=== PATIENT | male | born 1980 | race Caucasian/White ===

== ENCOUNTER 2025-04-03 00:34 | Emergency (ER) | payer OTHER, SELFPAY ==
--- NOTE | ~2025-04-03 | CT_ITS ---
CLINICAL HISTORY: LEFT FLANK PAIN CT abdomen and pelvis without contrast Comparison: None provided Findings: No consolidation of the imaged lung bases. Multiple right-sided nephrolithiasis measure up to 4 mm. Multiple left-sided nephrolithiasis measure up to 3 mm. No hydronephrosis of either kidney. Fluid and stranding this is nonspecific by upper abdomen and likely reflects pancreatitis. Mild volume loss of the pancreas also noted. The adrenal glands are normal. No lobe formed pseudocyst or walled-off area of necrosis by noncontrast CT. Multiple mesenteric and retroperitoneal lymph nodes are nonspecific and may be reactive. Mild splenomegaly. Gallbladder contracted. Liver is unremarkable for noncontrast imaging with motion artifacts. No small bowel obstruction. Severe stool burden is present, including the cecum. The appendix is not definitively seen and likely surgically absent. The prostate gland measures 4 cm transverse. Mild wall thickening of the urinary bladder is nonspecific. Vascular calcifications noted, including phleboliths in the pelvis. Degenerative changes include the hips, SI joints, and spine. Facet arthropathy is multifocal and greater than expected for age. Degenerative disc changes noted including vacuum disc phenomenon with mild retrolisthesis at L3-L4. IMPRESSION: 1. Mild fluid in the upper abdomen is nonspecific and concerning for pancreatitis. 2. Multiple nonobstructing bilateral nephrolithiasis measuring up to 4 mm. No hydronephrosis. 3. Severe stool burden. No small bowel obstruction. This document has been electronically signed by: Stuart Gongora MD on 04/03/2025 02:42:01
[2025-04-03 00:45] VITALS: BP 116/70; BP 124/82; PULSE 83; PULSE 91; RESP 15; TEMP 36.7; O2SAT 96; O2SAT 97; BMI 36.9
--- NOTE | 2025-04-03 01:03 | ED_ITS ---
HPI - Male Genitourinary General Chief complaint: Urogenital-Male Stated complaint: ABDOMINAL PAIN /KIDNEY STONES ? Time Seen by Provider: 04/03/25 00:50 Source: patient Limitations: no limitations History of Present Illness ED Provider: Ary Nails PA-C HPI Narrative: 44-year-old male with a history of major depressive disorder, polysubstance abuse, seizure disorder, TBI, kidney stones, coming from [facility] with left flank pain times 3 days. Pain over mid to lower left flank with radiation to the back at times. Pain described as sharp, the pain fluctuates in intensity. Associated discolored urine, dysuria and increased urinary frequency. Associated nausea at times. Denies known fever. Related Data Allergies Allergy/AdvReac Type Severity Reaction Status Date / Time aripiprazole (From Abilify) Allergy Seizure Verified 04/03/25 00:47 divalproex sodium (From Allergy Muscle Verified 04/03/25 00:47 Depakote) cramps Review of Systems 2 Review of Systems: Yes all other systems are reviewed and are negative Constitutional: Constitutional: Denies fatigue and Denies fever(s) Cardiovascular: Cardiovascular: Denies chest pain and Denies dyspnea Respiratory: Respiratory: Denies dyspnea Gastrointestinal: Gastrointestinal: Reports abdominal pain, Reports nausea and Denies vomiting Genitourinary: Genitourinary: Reports hematuria, Reports dysuria and Reports flank pain Musculoskeletal: Musculoskeletal: Reports back pain Endocrine: Endocrine: Denies fatigue [facility] Past Medical History Attestation statement: The following information was validated with the patient. Social History Social History Advance Directives: No Advance Directives Information Provided: Yes Physical Exam 2 Vital Signs: Vital Signs: Last Vital Signs Temp 98.0 F 04/03/25 00:45 Pulse 83 04/03/25 00:45 Resp 18 04/03/25 01:18 BP 116/70 04/03/25 00:45 Pulse Ox 96 04/03/25 00:45 O2 Del Method Room Air 04/03/25 00:45 BMI result Body Mass Index 36.9 Const: Other: Alert well-appearing Orientation/consciousness: patient oriented x3 Resp: Effort & Inspection: normal respiratory effort Cardio: Other: Normal peripheral perfusion : General: Yes no CVA tenderness Back/Spine/Pelvis: Back: no CVA tenderness Skin: Other: Warm dry no rash Neuro: General: patient oriented x3, gait normal, no focal motor deficits and CN's II-XI intact bilaterally Psych: Other: Cooperative Medications Administered Discontinued Medications Generic Name Dose Route Start Last Admin Trade Name Jovanna PRN Reason Stop Dose Admin Sodium Chloride 1,000 mls @ 999 mls/hr 04/03/25 01:15 04/03/25 03:20 Ns IV 04/03/25 02:15 Infused .Q1H1M ALANNAH Infusion Ketorolac Tromethamine 15 mg 04/03/25 01:02 04/03/25 01:19 Ketorolac Tromethamine 15 Mg/Ml Vial IVPUSH 04/03/25 01:03 15 mg ONCE ONE Administration Morphine Sulfate 4 mg 04/03/25 01:02 04/03/25 01:18 Morphine Sulfate 4 Mg/Ml Cartridge IVPUSH 04/03/25 01:03 4 mg ONCE ONE Administration Protocol Ondansetron HCl 4 mg 04/03/25 01:02 04/03/25 01:19 Ondansetron Hcl 4 Mg/2 Ml Vial IVPUSH 04/03/25 01:03 4 mg ONCE ONE Administration Tamsulosin HCl 0.4 mg 04/03/25 01:02 04/03/25 01:18 Tamsulosin Hcl 0.4 Mg Capsule PO 04/03/25 01:03 0.4 mg ONCE ONE Administration Medical Decision Making Medical Decision Making MDM Narrative: 44-year-old male with a history of major depressive disorder, polysubstance abuse, seizure disorder, TBI, kidney stones, coming from [facility] with left flank pain times 3 days. Pain over mid to lower left flank with radiation to the back at times. Pain described as sharp, the pain fluctuates in intensity. Associated discolored urine, dysuria and increased urinary frequency. Associated nausea at times. Denies known fever. Problem: Psychiatric illness, kidney stones History: Per patient I have considered the following differential diagnoses: Pyelonephritis, renal colic, diverticulitis, UTI Plan: Patient has a history of kidney stones, his symptoms and distribution of pain are consistent with a renal colic. In addition to screening labs adding on a UA, we will obtain a CT scan. Giving morphine Toradol Zofran and Flomax with fluid. Thought about diverticulitis given left-sided symptoms, however no focal pain within the left lower quadrant, no diarrhea. I have independently reviewed the following tests: Labs: Pancytopenic, no electrolyte abnormality, LFTs minimally elevated at 78 AST, 67 ALT, alk phos 219, lipase 21, urine not infected, passing small amount of hematuria, he could have passed a small stone, given he has stones that are nonobstructing at this time. CT abdomen and pelvis:IMPRESSION: 1. Mild fluid in the upper abdomen is nonspecific and concerning for pancreatitis. 2. Multiple nonobstructing bilateral nephrolithiasis measuring up to 4 mm. No hydronephrosis. 3. Severe stool burden. No small bowel obstruction. Clinically, the patient does not have pancreatitis, he is sitting up eating and drinking, he has had at least 2 sandwiches, crackers, pudding several drinks, he is not nauseous, and he does not have focal left upper abdominal pain. This is clearly an over-read on the CT scan Differential Diagnosis Differential Diagnoses: The differential diagnosis associated with the presentation includes See medical decision-making Admission/Observation Consideration of admission/observation: Escalation of care including admission/observation considered Not applicable Lab Data MDM Lab Attestation statement: I reviewed the patient's lab results. 04/03/25 01:10 04/03/25 01:10 Labs: Lab Results 04/03/25 04/03/25 Range/Units 01:10 03:18 WBC 3.8 L (4.8-10.8) X10*3/uL RBC 3.90 L (4.60-5.80) X10*6/uL Hgb 11.2 L (14.0-18.0) g/dl Hct 33.5 L (42.0-52.0) % MCV 85.9 (80.0-98.0) fL MCH 28.7 (27.0-33.0) pg MCHC 33.4 (31.0-36.0) g/dl RDW 16.0 (11.0-16.0) % Plt Count 76 L (160-400) X10*3/uL MPV 12.3 (9.4-12.4) fL Immature Gran % (Auto) 0.0 (0.0-0.4) % Neut % (Auto) 35.4 L (45-73) % Lymph % (Auto) 50.9 H (20-40) % [place] % (Auto) 9.0 (2-11) % Eos % (Auto) 4.2 H (0-4) % Baso % (Auto) 0.5 (0-2) % Lymph # (Auto) 1.9 (1.2-4.9) X10*3/uL [place] # (Auto) 0.3 (0.1-1.2) X10*3/uL Eos # (Auto) 0.2 (0.0-0.4) X10*3/uL Baso # (Auto) 0.0 (0.0-0.2) X10*3/uL Abs Immat Gran (auto) 0.00 (0.00-0.03) X10*3/uL Absolute Neuts (auto) 1.3 L (2.0-8.3) x10*3/uL Absolute Nucleated RBC 0.000 (0.0-0.012) X10*3/uL Nucleated RBC % (auto) 0.0 (0.0-0.2) /100WBC Sodium 141 (135-145) mmol/L Potassium 4.4 (3.3-5.1) mmol/L Chloride 107 (96-108) mmol/L Carbon Dioxide 28 (22-29) mmol/L Anion Gap 10 L (12-20) BUN 14 (9-16) mg/dL Creatinine 0.74 (0.5-1.4) mg/dL Estim Creat Clear Calc 166.1 Estimated GFR > 60 Random Glucose 252 H (60-115) mg/dL Calcium 8.8 (8.4-10.2) mg/dL Magnesium 1.7 (1.6-2.6) mg/dL Total Bilirubin 0.4 (0.0-1.0) mg/dL AST 78 H (5-37) U/L ALT 67 H (0-40) U/L Alkaline Phosphatase 219 H (39-117) U/L Total Protein 6.5 (6.5-8.0) g/dL Albumin 3.5 (3.5-5.0) g/dL Lipase 21 (8-78) U/L Urine Color Dark Yellow Urine Appearance Clear Urine pH 6.5 (5.0-9.0) Ur Specific [place] >= 1.030 H (1.005-1.025) Urine Protein Trace (Neg-Trace) mg/dL Urine Glucose (UA) 100 H (Negative) mg/dL Urine Ketones Trace (Negative) mg/dL Urine Blood Trace H (Negative) Urine Nitrite Negative (Negative) Ur Leukocyte Esterase Negative (Negative) Urine RBC 11-20 H (0-2) /HPF Urine WBC 0-5 (0-5) /HPF Ur Squamous Epith Cells 0-2 (0-2) /HPF Urine Bacteria None Seen (None Seen) Hyaline Casts 0-2 (0-2) /LPF Radiology Impression Discussion of test interpretation with radiology: I have reviewed the radiologist's reading. Discharge Plan Discharge Clinical Impression: Abdominal pain, Hematuria Patient Disposition: Home, Self-Care Instructions: Abdominal Pain (ED), Hematuria (ED) Additional Instructions: The CT scan revealed that you have multiple stones in both kidneys, however there is nothing passing at this time. You likely passed a stone earlier today, you do have blood in your urine. The remainder of your labs were at your baseline. You need to follow up with the urologist, I am providing you with a contact, you can call to make an appointment. Referrals: Malathi Guerrero MD [Physician, Urology] Referral Note: Kidney stones Print Language: Malawian
[2025-04-03 01:15] LABS: MANUAL DIFF FLAG NO
[2025-04-03 01:18] VITALS: RESP 18
[2025-04-03 01:25] LABS: Hematocrit 33.5 % (42.0-52.0); Hemoglobin 11.2 g/dl (14.0-18.0); Imm Gran Abs Auto 0.00 X10*3/uL (0.00-0.03); Imm Gran Pct Auto 0.0 % (0.0-0.4); Lymphocytes Absolute Auto 1.9 X10*3/uL (1.2-4.9); Mean Corpuscular HGB Conc 33.4 g/dl (31.0-36.0); Mean Corpuscular Hemoglobin 28.7 pg (27.0-33.0); Mean Corpuscular Volume 85.9 fL (80.0-98.0); NRBC Abs Auto 0.000 X10*3/uL (0.0-0.012); NRBC Pct Auto 0.0 /100WBC (0.0-0.2); Platelet Count 76 X10*3/uL (160-400); Red Blood Count 3.90 X10*6/uL (4.60-5.80); White Blood Count 3.8 X10*3/uL (4.8-10.8)
[2025-04-03 01:38] LABS: Alanine Aminotransferase 67 U/L (0-40); Albumin Level 3.5 g/dL (3.5-5.0); Alkaline Phosphatase 219 U/L (39-117); Anion Gap 10 (12-20); Aspartate Amino Transferase 78 U/L (5-37); Blood Urea Nitrogen 14 mg/dL (9-16); Calcium 8.8 mg/dL (8.4-10.2); Carbon Dioxide 28 mmol/L (22-29); Chloride 107 mmol/L (96-108); Creatinine Clr Calc Pharmacy 166.1; Estimated Glomerular Filt Rate > 60; Magnesium 1.7 mg/dL (1.6-2.6); Potassium 4.4 mmol/L (3.3-5.1); Sodium 141 mmol/L (135-145); Total Protein 6.5 g/dL (6.5-8.0)
--- NOTE | 2025-04-03 01:40 | PC.NURSE ---
pt biba from [facility], a&ox4, respirations even and unlabored. pt reports onset of RLQ pain radiating into r flank. pt reports increased burning and pain with urination. pt reports hx of kidney stones. elysia castillo at bedside. 20g placed in left ac. pt in hospital attire, and sitter at bedside. pt medicated per aug.
--- OUTSIDE RECORDS SUMMARY | 2025-04-03 02:33 | XMS_ITS | Clinical Summary ---
Author Organization [facility] Address [address] [place] [address] Care Team Providers Care Sales Analyst Name Role Phone No, Pcp MD Primary Care Provider Unavailabl e Allergies Active Allergy Reactions Criticality Noted Date Comments Divalproex GI Intolerance 02/08/2025 Divalproex Sodium Other (See Comments) 05/05/20 Haloperidol Other (See Comments) 05/05/2024 Medications cloNIDine HCL (CATAPRES) 0.2 MG tablet Take 1 (one) tablet (0.2 mg total) by mouth once daily. 5 Active baclofen (LIORESAL) 10 MG tablet Take 1 (one) tablet (10 mg total) by mouth 4 (four) times a day. Active buprenorphine-n aloxone (SUBOXONE) 8-[address] 1 (one) tablet (8 mg total) under the tongue 2 (two) times a day. Active buPROPion (WELLBUTRIN XL) 150 MG 24 hr XL tablet Take 1 (one) tablet (150 mg total) by mouth once daily. 4 Active busPIRone (BUSPAR) 30 MG tablet Take 1 (one) tablet (30 mg total) by mouth 2 (two) times a day. 4 Active FLUoxetine (PROZAC) 20 MG capsule Take 2 (two) capsules (40 mg total) by mouth once daily. 5 Active ADVAIR DISKUS 100-50 mcg/dose inhaler Inhale 1 (one) puff by mouth 2 (two) times a day. 5 Active hydrOXYzine HCL (ATARAX) 25 MG tablet 1 (one) tablet (25 mg total) 4 (four) times a day. 5 Active lurasidone (LATUDA) 40 mg tablet Take 1 (one) tablet (40 mg total) by mouth daily with dinner. 4 Active mirtazapine (REMERON) 15 MG tablet Take 1 (one) tablet (15 mg total) by mouth nightly. 5 Active blood-glucose meter Kit by Other route. 5 Active insulin lispro (ADMELOG, HUMALOG) 100 unit/mL injection solution Active LORazepam (ATIVAN) 1 MG tablet TAKE 1 TAB ONCE A DAY FOR BENZO/ETOH W/DRAWAL 5 Active prazosin (MINIPRESS) 2 MG capsule take 1 capsule by mouth every day at night Active tamsulosin (FLOMAX) 0.4 mg capsule Active SUBOXONE 4-1 mg sublingual film PLEASE SEE ATTACHED FOR DETAILED DIRECTIONS 5 Active gabapentin (NEURONTIN) 800 MG tablet Take 1 (one) tablet (800 mg total) by mouth 3 (three) times a day. Active QUEtiapine (SEROQUEL XR) 300 MG 24 hr tablet TAKE 1 TABLET BY MOUTH EVERY DAY AT BEDTIME FOR MOOD 5 Active hydrOXYzine (ATARAX) 50 MG tablet TAKE 1 TAB TWICE A DAY NEEDED FOR ANXIETY Active omeprazole (PRILOSEC) 20 MG delayed release capsule Take by mouth. 5 Active Encounters Date Type Department Care Team Description 03/26/2025 6:34 PM EDT - 03/27/2025 10:37 PM EDT Emergency [facility] Emergency Medicine [address] [place] [phone] Yair Terry DO Kim, Samuel, MD Brown, William, MD Ramler, Allison, MD Altered mental status, unspecified altered mental status type (Primary Dx); Benzodiazepine overdose of undetermined intent, initial encounter Discharge Disposition: [facility] 02/08/2025 6:22 PM EDT - 02/10/2025 10:20 AM EDT Emergency [facility] Emergency Medicine [address] [place] [phone] Ej Hopkins MD Agitation (Primary Dx) Discharge Disposition: [facility] from Last 3 Months Social History Tobacco Use Types Packs/Day Years Used Date Smoking Tobacco: Never Assessed Humiliation, Afraid, Rape, a nd Kick questionnaire Answer Date Recorded Within the last year, have y ou been afraid of your partner or ex-partner? Patient unable to answer 03/26/2025 Emotionally Abused Not on file 03/26/2025 Physically Abused Not on file 03/26/2025 Sexually Abused Not on file 03/26/2025 Sex and Gender Information Value Date Recorded Sex Assigned at Not on file Legal Sex Male 6:02 PM EDT Gender Identity Not on file Sexual Orientation Not on file Last Filed Vital Signs Vital Sign Reading Time Taken Comments Blood Pressure 133/88 03/27/2025 10:24 PM EDT Pulse 84 03/27/2025 10:24 PM EDT Temperature 36.7 C (98 F) 03/27/2025 10:24 PM EDT Respiratory Rate 20 03/27/2025 10:24 PM EDT Oxygen Saturation 100% 03/27/2025 10:24 PM EDT Inhaled Oxygen Concentration - - Weight 113.4 kg (250 lb) 01/22/2025 4:05 PM EDT Height 177.8 cm (5' 10 ) 02/08/2025 2:35 PM EDT Body Mass Index 33.91 01/22/2025 4:05 PM EDT Plan of Treatment Health Maintenance Due Date Last Done Comments HEPATITIS C SCREENING 1996 PNEUMOCOCCAL VACCINE (1 of 2 - PCV) 1998 DTAP/TDAP/TD VACCINES (1 - Tdap) 2008 COLONOSCOPY (CRC) 2024 COLORECTAL CANCER SCREENING (CRC) 2024 CT COLONOGRAPHY (CRC) 2024 FIT-DNA (CRC) 2024 FIT/iFOBT (CRC) 2024 SIGMOIDOSCOPY (CRC) 2024 INFLUENZA VACCINE (#1) 2025 COVID-19 IMMUNIZATION (1 - 2 024-25 season) 2025 ZOSTER VACCINE (1 of 2) 2029 RSV IMMUNIZATION (1 - 1-dose 75+ series) 2054 IPV VACCINES Aged Out No longer eligi ble based on patient's age to complete this topic MENINGOCOCCAL B VACCINE Aged Out No l onger eligible based on patient's age to complete this topic Procedures Procedure Name Priority Date/Time Associated Diagnosis Comments MANUAL DIFFERENTIAL Routine 03/26/2025 7 :25 PM EDT BASIC METABOLIC PANEL STAT 03/26/2025 7:25 PM EDT HC AUTO CBC NO DIFF STAT 03/26/2025 7 :25 PM EDT ETHANOL LEVEL STAT 03/26/2025 7:25 PM EDT +GLUMETER Routine 03/26/2025 6:59 PM EDT URINALYSIS WITH REFLEX TO CULTURE Routine 02/10/2025 7:08 AM EDT CONVERSION BUPRENORPHINE SUBOXONE SCREEN Routine 02/10/2025 7:08 AM EDT URINE DRUG SCREEN STAT 02/10/2025 7:0 8 AM EDT X-RAY CHEST PA AND LATERAL STAT 02/08/2025 6:41 PM EDT TROPONIN T HIGH SENSITIVITY, RANDOM STAT 02/08/2025 6:40 PM EDT TROPONIN T HIGH SENSITIVITY, TIMED STAT 02/08/2025 2:39 PM EDT HC AUTO CBC WITH DIFF STAT 02/08/2025 2:39 PM EDT BASIC METABOLIC PANEL STAT 02/08/2025 2:39 PM EDT ECG 12-LEAD STAT 02/08/2025 from Last 3 Months Results * (ABNORMAL) Basic Metabolic Panel (03/26/2025 7:25 PM EDT) Only the most recent of2 resultswithin the time period is included. Glucose 147(H) 67 - 99 MG/DL 03/26/2025 7:48 PM EDT [facility] BUN 10 6 - 24 MG/DL 03/26/2025 7:48 PM EDT [facility] Creat Level 0.60(L) 0.64 - 1.27 MG/DL 03/26/2025 7:48 PM [facility] eGFR >120 >90 mL/min/1.7 3m exp2 03/26/2025 7:48 PM [facility] Comment:Calculated using the CKD-epi 2020 race-free equation. BUN Creatinine Ratio 17 03/26/2025 7:48 PM [facility] Sodium 139 135 - 145 mEq/L 03/26/2025 7:48 PM [facility] Potassium 3.7 3.6 - 5.1 mEq/L 03/26/2025 7:48 PM [facility] Chloride 103 98 - 110 mEq/L 03/26/2025 7:48 PM [facility] CO2 25 20 - 29 mEq/L 03/26/2025 7:48 PM [facility] Anion Gap 11 3 - 13 03/26/2025 7:48 PM [facility] Calcium 9.2 8.4 - 10.2 MG/DL 03/26/2025 7:48 PM [facility] Blood 03/26/2025 7:25 PM EDT 03/26/2025 7:29 PM EDT Yair Terry LAB BLOOD ORDERABLES Final Resul t Performing Organization Address City/State/[facility] Co de Phone Number [facility] [address] [place] [address], [facility] [address] [place] [address] * Manual Differential (03/26/2025 7:25 PM EDT) Band % 1.0 % 03/26/2025 8:22 PM T [facility] Band (absolute) 0.1 0.0 - 0.5 [id number]/L 03/26/2025 8:22 PM [facility] RBC Morphology Normal 03/26/2025 8:22 PM [facility] Manual Diff Performed PERFORMED 03/26/2025 8:22 PM T [facility] 03/26/2025 7:25 PM EDT 03/26/2025 7:29 PM EDT Yair Terry DO LAB BLOOD ORDERABLES Final Resul t [facility] [address] [place] [address], [facility] [address] [place] [address] * (ABNORMAL) CBC with Diff (03/26/2025 7:25 PM EDT) Only the most recent of2 resultswithin the time period is included. WBC 6.1 4.2 - 10.0 h23spq6/L 03/26/2025 8:22 PM [facility] RBC 4.20(L) 4.50 - 5.60 x15qcm01/L 03/26/2025 8:22 PM [facility] Hemoglobin 12.2(L) 13.4 - 16.0 g/dL 03/26/2025 8:22 PM [facility] Hematocrit 35.8(L) 41.2 - 51.0 % 03/26/2025 8:22 PM [facility] MCV 85.2 85.2 - 100.2 fL 03/26/2025 8:22 PM [facility] MCH 29.0 27.0 - 32.4 pg 03/26/2025 8:22 PM [facility] MCHC 34.1 29.5 - 34.2 g/dL 03/26/2025 8:22 PM [facility] RDW 16.1(H) 11.8 - 14.4 % 03/26/2025 8:22 PM [facility] Platelets 76(L) 168 - 382 d94zok6/L 03/26/2025 8:22 PM [facility] Comment: COUNT AGREES WITH ESTIMATE. NO CLUMPS ON SMEAR. NO PARASITES SEEN. COUNT CORRELATES WITH PREVIOUS RESULT. (1 MONTH AGO) MPV 10.8 9.6 - 12.5 fL 03/26/2025 8:22 PM [facility] NRBC % 0.0 -1.0 - 0.0 % 03/26/2025 8:22 PM [facility] NRBC (absolute) 0.0 p89bhh9/L 8:22 PM EDT [facility] Seg Neutrophil % 53.0 % 03/26/2025 8:22 PM EDT [facility] Seg Neutrophil (absolute) 3.2 1.9 - 6.7 r10juv9/L 03/26/2025 8:22 PM EDT [facility] Lymphocyte % 41.0 % 03/26/2025 8:22 PM T [facility] Lymphocyte (absolute) 2.5 1.0 - 3.3 s02txs5/L 03/26/2025 8:22 PM EDT [facility] Monocyte % 3.0 % 03/26/2025 8:22 PM T [facility] Monocyte (absolute) 0.2(L) 0.3 - 0.9 w69ptj5/L 03/26/2025 8:22 PM EDT [facility] Eosinophil % 2.0 % 03/26/2025 8:22 PM T [facility] Eosinophil (absolute) 0.1 0.0 - 0.4 a50abf3/L 03/26/2025 8:22 PM T [facility] Basophil % 0.0 % 03/26/2025 8:22 PM T [facility] Basophil (absolute) 0.0 0.0 - 0.1 b43syr0/L 03/26/2025 8:22 PM T [facility] 03/26/2025 7:25 PM EDT 03/26/2025 7:29 PM EDT Yair Terry DO LAB BLOOD ORDERABLES Edited Resu lt - Final [facility] [address] [place] [address], [facility] [address] [place] [address] * Ethanol Level (03/26/2025 7:25 PM EDT) Ethanol Level Not Detected Not Detected MG/DL 03/26/2025 7:48 PM EDT [facility] Blood 03/26/2025 7:25 PM EDT 03/26/2025 7:29 PM EDT us Yair Rifino DO LAB BLOOD ORDERABLES Final Resul t Performing Organization Address City/[facility]/ZIP Co de Phone Number [facility] [address] [place] [address], [facility] [address] [place] [address] * (ABNORMAL) Glumeter (03/26/2025 6:59 PM EDT) Glumeter 128(H) 67 - 99 MG/DL 03/26/2025 6:59 PM EDT [facility] 03/26/2025 6:59 PM EDT 03/26/2025 7:02 PM EDT us Order Ed Protocol LAB BLOOD ORDERABLES Final Res ult Performing Organization Address [facility] de Phone Number [facility] [address] [place] [phone], [facility] [address] [place] [phone] * (ABNORMAL) Urinalysis with reflex to culture (02/10/2025 7:08 AM EDT) Color, Ur Dark Yellow yellow 02/10/2025 9:21 AM [facility] Appearance, Ur Clear slightly cloudy 02/10/2025 9:21 AM [facility] Glucose, Ur negative negative mg/dL 02/10/2025 9:21 AM [facility] Bilirubin, Ur negative negative mg/dL 02/10/2025 9:21 AM [facility] Ketones, Ur negative negative mg/dL 02/10/2025 9:21 AM [facility] Specific Byron, Ur 1.013 1.010 - 1.030 02/10/2025 9:21 AM [facility] Blood, Ur Moderate(A) negative mg/dL 02/10/2025 9:21 AM [facility] pH, Ur 6.5 5.0 - 8.0 02/10/2025 9:21 AM [facility] Protein, Ur negative negative mg/dL 02/10/2025 9:21 AM [facility] Urobilinogen, Ur >=8.0(A) normal E.U./dL 02/10/2025 9:21 AM [facility] Comment:@UF REFLEX Nitrite Level, Ur negative negative 02/10/2025 9:21 AM [facility] Leukocytes Est, Ur negative negative mg/dL 02/10/2025 9:21 AM [facility] RBC, Ur 6-10(A) 0 - 2 /HPF 02/10/2025 9:23 AM [facility] WBC, Ur None Seen 0 - 5 /HPF 02/10/2025 9:23 AM [facility] Bacteria, Ur None Seen none seen /HPF 02/10/2025 9:23 AM [facility] Squam Epithel, Ur None Seen absent /HPF 02/10/2025 9:23 AM [facility] Hyaline Casts, Ur None Seen 0 - 2 /LPF 02/10/2025 9:23 AM [facility] 02/10/2025 7:08 AM EDT 02/10/2025 7:27 AM EDT Radha Ojeda MD URINE ORDERABLES Edited Result - Final Performing Organization Address City/State/[facility] Co de Phone Number [facility] [address] [place] [phone], [facility] [address] [place] [address] * (ABNORMAL) Urine Drug Screen (02/10/2025 7:08 AM EDT) Amphetamine Scrn, Ur None Detected 02/10/2025 9:44 AM [facility] Benzodiazepine Screen, Urine POSITIVE SCREEN(A) 02/10/2025 9:44 AM [facility] Cannabinoid Screen, Urine POSITIVE SCREEN(A) 02/10/2025 9:44 AM [facility] Cocaine Screen, Ur None Detected 02/10/2025 9:44 AM [facility] Fentanyl Screen, Urine None Detected 02/10/2025 9:44 AM [facility] Comment: This test was developed and its performance characteristics determined by the Clinical Biochemistry Lab. It has not been cleared or approved by the [place] Food and Drug Administration but the [place] regulations permit its development under the laboratory license. This test and method is defined in the clinical lab guide and should not be regarded as investigational or research use only. Methadone Screen, Urine None Detected 02/10/2025 9:44 AM EDT [facility] Opiate Screen, Urine None Detected 02/10/2025 9:44 AM T [facility] Comment: Note: Drug of abuse immunoassay results are from screening methods. Positive screening results that are not confirmed are reported as POSITIVE SCREEN. If confirmatory testing is desired, it must be requested as a separate order to the Toxicology Lab WITHIN 5 DAYS of sample collection. Unconfirmed screening results should only be used for medical purposes. Toxicology Drug Specimen Rec'd 02/10/2025 7:27 AM EDT [facility] Oxycodone Scrn, Ur None Detected 02/10/2025 9:44 AM EDT [facility] Urine 02/10/2025 7:08 AM EDT 02/10/2025 7:27 AM EDT us Radha Ojeda MD URINE ORDERABLES Final Result Performing Organization Address City/[facility] Co de Phone Number [facility] [address] [place] [address], [facility] [address] [place] [address] [place] [address] * (ABNORMAL) Buprenorphine Suboxone Screen (02/10/2025 7:08 AM EDT) Buprenorphine Suboxone Scrn POSITIVE SCREEN(A) 02/10/2025 9:44 AM EDT [facility] 02/10/2025 7:08 AM EDT 02/10/2025 7:27 AM EDT us Radha Ojeda MD LAB BLOOD ORDERABLES Final Resul t Performing Organization Address City/[facility] Co de Phone Number [facility] [address] [place], [place] [phone], [facility] [address] [place] [address] * X-Ray Chest PA and Lateral (02/08/2025 6:41 PM EDT) Anatomical Region Laterality Modality Radiographic Aliza ging Impressions 02/09/2025 9:06 AM EDT Impression: No acute cardiopulmonary process. Signing Doctor: Heather Aden Contributing Doctor: Date Signed:02/09/2025 9:06 AM Patient DOS:02/08/2025 4:27 PM Exam:[id number] X-RAY CHEST PA AND LATERAL Narrative 02/09/2025 9:06 AM EDT Indication:Chest Pain ED Protocol Technique: PA and lateral views of the chest. Comparison:None Findings: The trachea is midline. The heart, mediastinum, and kelsy are unremarkable. The lungs are clear without acute infiltrates. The costophrenic angles are clear. The osseous structures are within normal limits. Procedure Note Heather Alarcon MD - 02/09/2025 Indication:Chest Pain ED Protocol Technique: PA and lateral views of the chest. Comparison:None Findings: The trachea is midline. The heart, mediastinum, and kelsy areunremarkable. The lungs are clear without acute infiltrates. Thecostophrenic angles are clear. The osseous structures are within normal limits. Impression: No acute cardiopulmonary process. Signing Doctor: Heather Aden Contributing Doctor:Date Signed:02/09/2025 9:06 AM Patient DOS:02/08/2025 4:27 PM Exam:[id number] X-RAY CHEST PA AND LATERAL us Yair Stern MD [facility] ORDER EVELIA Final Result * Troponin T, High Sensitivity (02/08/2025 6:40 PM EDT) TROPONIN T HIGH SENSITIVITY, RANDOM 7 0 - 14 ng/L 02/08/2025 7:25 PM EDT [facility] Comment: Normal range: Females <9 ng/L Males <14 ng/L Values greater than or equal to 52 ng/L indicates acute myocardial injury/infarction Values between '10 and 51 ng/L' (for females) or '15 and 51 ng/L' (for males) require clinical correlation and is not diagnostic of acute myocardial injury. Consider repeat at 1 and 3 hours. A dynamic increase of g reater than 5 ng/L at 1 hour or 3 hours indicates of acute myocardial injury/infarction. For a patient with an estimated GFR of less than 30 mL/min/1.73 m2 or receiving dialysis, a dynamic increase of greater than 20% at 3 hours indicates acute myocardial injury. A value of less than 9 ng/L (in females) or less than 14 ng/L (in males) with a dynamic change of less than 3 ng/L, greater than 3 hours after symptom onset, generally rules out acute myocardial injury/infarction. Refer to Chest Pain order sets for additional clinical decision support (using the HEART score for the ED or the MANUEL score for the inpatient setting). 02/08/2025 6:40 PM EDT 02/08/2025 7:00 PM EDT us Ej Hopkins MD LAB BLOOD ORDERABLES Final Res ult [facility] [address] [place] [phone], [facility] [address] [place] [address] * Troponin T High Sensitivity, Timed (02/08/2025 2:39 PM EDT) TROPONIN T HIGH SENSITIVITY, BASELINE 7 0 - 14 ng/L 02/08/2025 3:23 PM EDT [facility] Comment: Normal range: Females <9 ng/L Males <14 ng/L Values greater than or equal to 52 ng/L indicates acute myocardial injury/infarction Values between '10 and 51 ng/L' (for females) or '15 and 51 ng/L' (for males) require clinical correlation and is not diagnostic of acute myocardial injury. Consider repeat at 1 and 3 hours. A dynamic increase of g reater than 5 ng/L at 1 hour or 3 hours indicates of acute myocardial injury/infarction. For a patient with an estimated GFR of less than 30 mL/min/1.73 m2 or receiving dialysis, a dynamic increase of greater than 20% at 3 hours indicates acute myocardial injury. A value of less than 9 ng/L (in females) or less than 14 ng/L (in males) with a dynamic change of less than 3 ng/L, greater than 3 hours after symptom onset, generally rules out acute myocardial injury/infarction. Refer to Chest Pain order sets for additional clinical decision support (using the HEART score for the ED or the MANUEL score for the inpatient setting). 02/08/2025 2:39 PM EDT 02/08/2025 3:01 PM EDT us Yair Stern MD LAB BLOOD ORDERABLES Final R esult [facility] [address] [place] [address], [facility] [address] [place] [address] * ECG 12 Lead (02/08/2025) RR Interval 680 ms [facility] Atrial Rate 87 ms [facility] P-R Interval 138 ms [facility] QRSD Interval 106 ms [facility] QT Interval 28 deg [facility] QTC Interval 39 deg [facility] P [place] 500 ms [facility] QRS [place] 92 ms [facility] T Wave [place] 377 ms [facility] QTcB 457 ms [facility] QTcF 429 ms [facility] QRS Horizontal [place] -43 deg [facility] QRS [place] -14 deg [facility] I-40 Horizontal [place] 18 deg [facility] I-40 Front [place] 1 deg [facility] T-40 Horizontal [place] -66 deg [facility] T-40 Front [place] -25 deg [facility] T Horizontal [place] 52 deg [facility] T Wave [place] 19 deg [facility] S-T Horizontal [place] 69 deg [facility] S-T Front [place] 75 deg [facility] ECG Impression - BORDERLINE ECG - [facility] 02/08/2025 Impressions [facility] - 02/15/2025 7:07 PM EDT SR Sinus rhythm normal P axis, V-rate 60-99 LAD Left axis deviation QRS axis (0,0) PRWP POOR R WAVE PROGRESSION 40 THERE IS NO RECORD FOR COMPARISON. Narrative Procedure Note Josep Spani MD - 02/15/2025 SR Sinus rhythm normal P axis, V-rate 60-99 LAD Left axis deviation QRS axis (0,0) PRWP POOR R WAVE PROGRESSION 40 THERE IS NO RECORD FOR COMPARISON. us Yair Stern MD ECG ORDERABLES Edited Resul t - Final [facility] from Last 3 Months Insurance [facility] [place] [phone] [facility] Care Teams Sales Analyst Relationship Specialty Start Date End Date No, MD Delmer No Address No [place] [address] PCP - General Internal Medicine 03/26/25
--- NOTE | 2025-04-03 02:57 | PC.NURSE ---
pt able to tolerate po fluids and food at this time
[2025-04-03 03:02] LABS: Lipase 21 U/L (8-78)
[2025-04-03 03:24] LABS: Appearance Urine Clear; Glucose Urine UA 100 mg/dL (Negative); PH 6.5 (5.0-9.0); Specific Gravity - Urine >= 1.030 (1.005-1.025); UMIC TRIGGER UACC YES
--- NOTE | 2025-04-03 03:59 | PC.NURSE ---
report given to Chetna LEONG at [facility]
--- NOTE | 2025-04-03 05:15 | PC.NURSE ---
ems at bedside for report
[2025-04-03 05:27] VITALS: BP 103/61; PULSE 76; RESP 14; TEMP 36.6; O2SAT 96
== END 2025-04-03 05:30 | disposition home or self-care (01) ==
PROVIDERS: Physician Assistant Medical; Emergency Provider Emergency Medicine
DX: R31.9 Hematuria, unspecified (principal); R10.9 Unspecified abdominal pain; R10.A0 Flank pain, unspecified side; R30.0 Dysuria; R35.0 Frequency of micturition
CPT/HCPCS: 36415; 74176; 80053; 81001; 83690; 83735; 85025; 96361; 96374; 96375; 99284; 99285; J1885; J2270; J2405

== ENCOUNTER → 2025-04-03 01:30 | Outpatient (BNV) | payer OTHER, SELFPAY | PROVIDERS: Emergency Provider Emergency Medicine; Visit Provider Radiology Neuroradiology | DX: N20.0 Calculus of kidney (principal) | CPT/HCPCS: 74176 ==